=== PATIENT | male | born 1980 | race Caucasian/White ===

== ENCOUNTER 2019-02-06 13:12 | Emergency (ER) | payer MEDICAID ==
[2019-02-06] MEDS: HYDROCODONE/APAP (5/325) TAB PO (14:58)
== END 2019-02-06 16:05 | disposition home or self-care (01) ==
LOC: FTE 13:12
DX: S52.501A Unspecified fracture of the lower end of right radius, initial encounter for closed fracture (principal); S52.614A Nondisplaced fracture of right ulna styloid process, initial encounter for closed fracture; W18.30XA Fall on same level, unspecified, initial encounter; Y92.322 Soccer field as the place of occurrence of the external cause
CPT/HCPCS: 29125; 73090; 73110-LT; 99283-25